=== PATIENT | female | born 1955 | race Caucasian/White ===

== ENCOUNTER 2021-06-06 20:30 | Emergency (ER) | payer MEDICARE ==
[2021-06-06] MEDS ORDERED: Sodium Chloride 0.9% 10 ML Syringe FLUSH PRN (20:38)
[2021-06-06] MEDS ORDERED: HYDROmorphone 1 MG/ML Syringe IVPUSH ONE ×2 (20:38→23:25)
--- NOTE | 2021-06-06 23:43 | EDM.PDOC ---
ED HPI GENERAL MEDICAL PROBLEM - General Chief Complaint: Lower Extremity Injury/Pain Stated Complaint: RIGHT LEG Time Seen by Provider: 06/06/21 20:37 Source of Information: Reports: Patient History Limitations: Reports: No Limitations - History of Present Illness INITIAL COMMENTS - FREE TEXT/NARRATIVE: Caty is a 65-year-old female presenting with friends to the ED for evaluation of acute onset of right lower leg pain. The patient who has been drinking a bloody Donna and beer today was walking in her friend's yard and tripped over a concrete block causing her to fall to the ground. She was unable to get back up and was experiencing severe low leg pain and swelling on the right. She has significant bruising just above the ankle. She reports intact sensation and has good capillary refill in the right foot. She is experiencing 8 out of 10 pain with any movement. He denies any other injury. Right Ankle Pain Score (Numeric/FACES): 10 - Related Data Allergies Allergy/AdvReac Type Severity Reaction Status Date / Time tape Allergy Rash Uncoded 06/06/21 20:49 Home Meds: Home Meds Albuterol [Proventil HFA] 06/06/21 [History] Aspirin [Halfprin] 06/06/21 [History] Calcium Carbonate/Vitamin D3 [Calcium 600 mg-D3 20 Mcg Tab] 1 tab PO DAILY 06/06/21 [History] Citalopram Hydrobromide [Celexa] 1 tab PO DAILY 06/06/21 [History] Ramipril 1 cap PO DAILY 06/06/21 [History] Tiotropium [Spiriva HandiHaler] 1 cap PO DAILY 06/06/21 [History] amLODIPine [Norvasc] 1 tab PO DAILY 06/06/21 [History] atenoloL [Atenolol] 50 mg PO DAILY 06/06/21 [History] atorvaSTATin [Lipitor] 1 tab PO DAILY 06/06/21 [History] hydroCHLOROthiazide [Hydrochlorothiazide] 1 tab PO DAILY 06/06/21 [History] Past Medical History Cardiovascular History: Reports: High Cholesterol, Hypertension, [place] Respiratory History: Reports: COPD Other Musculoskeletal History: capal tunnel both hands and trigger finger surgery - Infectious Disease History Infectious Disease History: Reports: Chicken Pox, Mumps - Past Surgical History Cardiovascular Surgical History: Reports: Carotid Stents Social & Family History - Tobacco Use Tobacco Use Status *Q: Former Tobacco User Years of Tobacco use: 35 Packs/Tins Daily: 1 Used Tobacco, but Quit: Yes Month/Year Tobacco Last Used: 07/2019 - Recreational Drug Use Recreational Drug Use: No Review of Systems - Review of Systems Review Of Systems: See Below Constitutional: Reports: No Symptoms Eyes: Reports: No Symptoms Mouth/Throat: Reports: No Symptoms Respiratory: Reports: No Symptoms Cardiovascular: Reports: No Symptoms GI/Abdominal: Reports: No Symptoms Musculoskeletal: Reports: Leg Pain (Severe right leg pain above the ankle), Beth nt Swelling (Swelling and ecchymosis above the right ankle), Other (Patient is unable to bear weight on the right lower extremity and movement of the right foot elicits severe pain) Skin: Reports: Bruising Neurological: Reports: No Symptoms Psychiatric: Reports: Anxiety ED EXAM, GENERAL - Physical Exam Exam: See Below Exam Limited By: No Limitations General Appearance: Alert, Anxious, Moderate Distress Eye Exam: Bilateral Eye: EOMI, PERRL Throat/Mouth: Normal Oropharynx Head: Atraumatic, Normocephalic Neck: Normal Inspection, Supple, Non-Tender, Full Range of Motion Respiratory/Chest: No Respiratory Distress, Lungs Clear, Normal Breath Sounds Cardiovascular: Normal Peripheral Pulses, Regular Rate, Rhythm, No Murmur GI/Abdominal: Normal Bowel Sounds, Soft, Non-Tender Back Exam: Normal Inspection, Full Range of Motion Extremities: Limited Range of Motion (Severe pain with any movement of the right foot leg, ankle or foot.), Other (Significant swelling and ecchymosis above the right ankle with mild deformity) Neurological: Alert, Oriented, Normal Cognition, No Motor/Sensory Deficits Psychiatric: Anxious Skin Exam: Warm, Dry, Intact, Ecchymosis (Ecchymosis and swelling above the right ankle) Course - Vital Signs Last Recorded V/S: Last Vital Signs Temp 36.6 C 06/06/21 21:07 Pulse 85 06/06/21 21:07 Resp 20 06/06/21 21:07 BP 131/81 06/06/21 21:07 Pulse Ox 95 06/06/21 21:07 - Orders/Labs/Meds Orders: Active Orders 24 hr Category Date Time Status Consult to Orthopedic Clinic [CONS] Routine Cons 06/07/21 00:11 Active Ankle Min 3V Rt [CR] Stat Exams 06/06/21 20:38 Taken Saline Lock Insert [OM.PC] Routine Oth 06/06/21 20:38 Ordered Labs: Laboratory Tests 06/06/21 Range/Units 22:58 SARS CoV-2 RNA Rapid CHETNA Negative Meds: Medications Discontinued Medications Generic Name Dose Route Start Last Admin Trade Name Danielle PRN Reason Stop Dose Admin Hydromorphone HCl 1 mg 06/06/21 20:38 06/06/21 20:45 Hydromorphone 1 Mg/Ml Syringe IVPUSH 06/06/21 20:39 1 mg ONETIME ONE Administration Hydromorphone HCl 1 mg 06/06/21 23:25 06/06/21 23:50 Hydromorphone 1 Mg/Ml Syringe IVPUSH 06/06/21 23:26 1 mg ONETIME ONE Administration Sodium Chloride 10 ml 06/06/21 20:38 06/06/21 20:45 Sodium Chloride 0.9% 10 Ml Syringe FLUSH 10 ml ASDIRECTED PRN Administration Keep Vein Open - Radiology Interpretation Free Text/Narrative:: I reviewed the three-view x-ray of the right ankle demonstrating torus fractures that are displaced of the distal fibula and diaphysis of the tibia. - Re-Assessments/Exams Free Text/Narrative Re-Assessment/Exam: 06/07/21 23:15 x-rays of the right ankle show torus fractures of the diaphysis of the tibia that is significantly displaced and of the distal fibula that is mildly displaced. The patient has good distal sensory, motor, and circulation. The patient was given Dilaudid IV for pain. I talked with the patient about treatment options and where she would like to go as there is an orthopedics sql server consultant at our institution [facility]. The patient elected to have me talk to the orthopedist from [facility] in [place], [place]. I discussed the case with Dr. Villareal the orthopedist from [facility] in [place], [place] who reviewed the images that were sent to him. He did not feel that this needed to come over to their facility emergently, nor did they have any beds available to admit her to the hospitalist service [facility]. He recommended placing her in a posterior short leg splint and have her nonweightbearing and providing her with pain medication. The patient recently had bilateral carpal tunnel release surgery and has healing wounds on both palms so the likelihood of being able to use crutches is minimal. She may be able to get around using a walker or a kneeling scooter. 06/07/21 23:45 the patient decided that maybe she would like to have Dr. Oleary see her in follow-up tomorrow instead of going back to [place]. I did place a referral to his office. My plan is to discharge her with a kneeling scooter and hydrocodone 5/325 mg with a dose of 1-2 tabs every 4 hours as needed for pain dispensing 10 tablets and have her follow-up with orthopedics in the morning. She will likely need surgical repair of this injury. 06/07/21 00:29 he COVID-19 rapid test was performed and is negative. Departure - Departure Time of Disposition: 00:29 Disposition: Home, Self-Care 01 Clinical Impression: Torus fracture of lower end of right tibia, initial encounter for closed fracture, Torus fracture of lower end of right fibula, initial encounter for closed fracture - Discharge Information Instructions: Tibial and Fibular Fractures, Intramedullary Nailing of Tibial Diaphyseal Fracture Referrals: PCP,None [Primary Care Provider] - Forms: ED Department Discharge Care Plan Goals: I discussed your case with Dr. Villareal, orthopedic surgeon from [facility] in [place], [place] would like you to call his office first thing in the morning at [phone] to be seen in the clinic tomorrow. He would like you to remain nonweightbearing on the right leg. We will provide you with a knee kneeler scooter to be able to get around. The difficulty will be managing the stairs which I suspect she will do best by going up on your behind using your left foot to advance. Please elevate the right ankle and keep the splint dry. I have provided you with hydrocodone for pain control until you can be seen by Dr. Villareal in the morning. After further discussion, I did place a consult for Dr. Oleary here at [facility] in [place]. He will review x-rays and have his office contact you to arrange for follow-up which I suspect will be today. Sepsis Event Note (ED) - Evaluation Sepsis Screening Result: No Definite Risk - Focused Exam Vital Signs: Vital Signs Temp Pulse Resp BP Pulse Ox 06/06/21 21:07 36.6 C 85 20 131/81 95 06/06/21 20:37 36.6 C 85 20 131/81 95 - Problem List & Annotations (1) Torus fracture of lower end of right fibula, initial encounter for closed fracture SNOMED Code(s): 217381369, 34704161023137473 Code(s): S82.821A - TORUS FRACTURE OF LOWER END OF RIGHT FIBULA, INIT Status: Acute Priority: Medium (2) Torus fracture of lower end of right tibia, initial encounter for closed fracture SNOMED Code(s): 476252710, 34923034210816224 Code(s): S82.311A - TORUS FRACTURE OF LOWER END OF RIGHT TIBIA, INIT FOR CLOS FX Status: Acute Priority: Medium - Problem List Review Problem List Initiated/Reviewed/Updated: Yes - My Orders Last 24 Hours: My Active Orders 06/06/21 20:38 Ankle Min 3V Rt [CR] Stat Saline Lock Insert [OM.PC] Routine 06/07/21 00:11 Consult to Orthopedic Clinic [CONS] Routine - Assessment/Plan Last 24 Hours: My Active Orders 06/06/21 20:38 Ankle Min 3V Rt [CR] Stat Saline Lock Insert [OM.PC] Routine 06/07/21 00:11 Consult to Orthopedic Clinic [CONS] Routine
--- NOTE | 2021-06-07 13:31 | CR ---
Ankle Min 3V Rt CLINICAL HISTORY: Fall FINDINGS: There is an oblique displaced fracture of the distal third of the tibial diaphysis. There is also an oblique fracture with minimal displacement in the distal fibula. Ankle mortise is widened medially. Impression: Tib-fib fractures described above Widening of the medial ankle mortise consistent with ligamentous injury
== END 2021-06-07 00:55 | disposition home or self-care (01) ==
LOC: JP.ED 20:30
DX: S82.311A Torus fracture of lower end of right tibia, initial encounter for closed fracture (principal); S82.821A Torus fracture of lower end of right fibula, initial encounter for closed fracture; E78.00 Pure hypercholesterolemia, unspecified; I10 Essential (primary) hypertension; I25.2 Old myocardial infarction; J44.9 Chronic obstructive pulmonary disease, unspecified; Z20.822 Contact with and (suspected) exposure to COVID-19; Z91.048 Other nonmedicinal substance allergy status; Z79.82 Long term (current) use of aspirin; Z79.899 Other long term (current) drug therapy; Z87.891 Personal history of nicotine dependence; W01.0XXA Fall on same level from slipping, tripping and stumbling without subsequent striking against object, initial encounter
CPT/HCPCS: 73610; 96374; 96376; 99283; J1170; U0002